=== PATIENT | male | born 1950 | race Caucasian/White ===

== ENCOUNTER 2017-08-16 19:40 | Emergency (ER) | payer OTHER ==
[~2017-08-16] VITALS: Ht 180.3 cm; Wt 100.0 kg
[2017-08-16] MEDS ORDERED: SODIUM CHLOR 0.9% 1000 ML INJ 1,000 ML IV ONE (20:00)
[2017-08-16 20:01] VITALS: BP 149/77; PULSE 77; RESP 16; O2SAT 97
[2017-08-16 20:08] VITALS: O2SAT 97
--- NOTE | 2017-08-16 20:17 | PD ---
HPI Chief Complaint: intoxication and facial trauma Time Seen by Provider: 20:00 Travel History International Travel<30 days: No Contact w/Intl Traveler<30days: No Traveled to known affect area: No History of Present Illness HPI This is a 67-year-old male with unknown past medical history, presents via EMS after he was found at the [employer] nearly passed out in the car. When paramedics arrived, they state police and found him sitting in the car with a heavy alcohol odor. The patient had slurred speech. He was alert and oriented to name only. Reportedly when the police got him out of the car, he fell forward and struck his face. There was no reported loss of consciousness. Patient has slurred speech and denies pain. He does appear to be heavily intoxicated. When asked what he drank, he reported again "a lot". There are no other obvious injuries other than his face. He has blood noted across his face and blood noted at his bilateral naris. There is swelling to his nose. PFSH Social History Tobacco Use: No (denies) Allergies-Medications (Allergen,Severity, Reaction): Coded Allergies: No Known Drug Allergies (Verified Allergy, Unknown, 08/17/17) Review of Systems ROS Limitations: Intoxication (unable to obtain review of systems secondary to the patient's intoxicated state.) Physical Exam Narrative GENERAL: Well developed well-nourished male in c-collar immobilization. The patient has obvious drying blood to his face and nose. There is blood noted in his mouth. SKIN: Focused skin assessment warm/dry. HEAD: Atraumatic. Normocephalic. EYES: Pupils are equal bilaterally at 3 mm No scleral icterus. No injection or drainage. ENT: Previous nasal bleeding with dried blood at his nares bilaterally. Patient has dried blood in his mouth. No obvious large laceration to his lip. He does have a small midline lower laceration that does not need repair and at this time. NECK: Trachea midline. In c-collar immobilization. CARDIOVASCULAR: Regular rate and rhythm. No murmur appreciated. RESPIRATORY: No accessory muscle use. Clear to auscultation. Breath sounds equal bilaterally. GASTROINTESTINAL: Abdomen soft, non-tender, nondistended. MUSCULOSKELETAL: No obvious deformities. No clubbing. No cyanosis. No edema. NEUROLOGICAL: Awake and intoxicated. No obvious cranial nerve deficits. Motor grossly within normal limits. Slurred speech. PSYCHIATRIC: Appropriate mood and affect; insight and judgment normal. Data Data Last Documented VS Vital Signs Date Time Temp Pulse Resp B/P (MAP) Pulse Ox O2 Delivery O2 Flow Rate FiO2 08/16/17 20:08 97 08/16/17 20:01 77 16 149/77 (101) Orders Orders Complete Blood Count With Diff (08/16/17 20:00) Comprehensive Metabolic Panel (08/16/17 20:00) Magnesium (Mg) (08/16/17 20:00) Ct Brain W/O Iv Contrast(Rout) (08/16/17 20:00) Iv Access Insert/Monitor (08/16/17 20:00) Ecg Monitoring (08/16/17 20:00) Oximetry (08/16/17 20:00) Alcohol (Ethanol) (08/16/17 20:00) Ct Cerv Spine W/O Contrast (08/16/17 20:00) Sodium Chlor 0.9% 1000 Ml Inj (Ns 1000 M (08/16/17 20:00) Ct Facial Bones W/O Iv Cont (08/16/17 ) Tetanus/Diphtheria Tox Adult (Tetanus/Di (08/17/17 02:30) Labs Laboratory Tests Test 08/16/17 20:06 White Blood Count 6.8 TH/MM3 Red Blood Count 4.28 MIL/MM3 Hemoglobin 13.1 GM/DL Hematocrit 39.0 % Mean Corpuscular Volume 91.1 FL Mean Corpuscular Hemoglobin 30.6 PG Mean Corpuscular Hemoglobin Concent 33.6 % Red Cell Distribution Width 13.1 % Platelet Count 192 TH/MM3 Mean Platelet Volume 8.3 FL Neutrophils (%) (Auto) 51.3 % Lymphocytes (%) (Auto) 37.3 % Monocytes (%) (Auto) 8.3 % Eosinophils (%) (Auto) 2.7 % Basophils (%) (Auto) 0.4 % Neutrophils # (Auto) 3.5 TH/MM3 Lymphocytes # (Auto) 2.6 TH/MM3 Monocytes # (Auto) 0.6 TH/MM3 Eosinophils # (Auto) 0.2 TH/MM3 Basophils # (Auto) 0.0 TH/MM3 CBC Comment DIFF FINAL Differential Comment Blood Urea Nitrogen 17 MG/DL Creatinine 0.73 MG/DL Random Glucose 97 MG/DL Total Protein 6.5 GM/DL Albumin 3.3 GM/DL Calcium Level 7.8 MG/DL Magnesium Level 2.1 MG/DL Alkaline Phosphatase 50 U/L Aspartate Amino Transf (AST/SGOT) 18 U/L Alanine Aminotransferase (ALT/SGPT) 22 U/L Total Bilirubin 0.3 MG/DL Sodium Level 141 MEQ/L Potassium Level 3.5 MEQ/L Chloride Level 109 MEQ/L Carbon Dioxide Level 22.7 MEQ/L Anion Gap 9 MEQ/L Estimat Glomerular Filtration Rate 107 ML/MIN Ethyl Alcohol Level 288 MG/DL [facility] Medical Decision Making Medical Screen Exam Complete: Yes Emergency Medical Condition: Yes Differential Diagnosis Alcohol intoxication versus intracranial injury versus metabolic derangement. Narrative Course 67-year-old male presents after being found in his car [place] [employer] intoxicated. The patient was taken out of his car by the police. When they did , the patient fell forward and struck his face on the ground. He has a right sided nasal bone fracture and a right minimally displaced infraorbital bone fracture. Patient's alcohol level was above 200. He'll be observed until he is appropriately sober. He does not need any laceration repair at this time. He'll be told to stop drinking alcohol. He'll be recommended to follow up with a maxillofacial physician as needed. He's been given tetanus immunization here in the emergency department. Diagnosis Primary Impression: Acute alcohol intoxication Additional Impressions: Nasal bone fracture right minimally displaced infraorbital bone fracture Additional Instructions: Follow up with a maxillofacial doctor as an outpatient for the fractures. Return if having difficulty with vision, or any other reason. Disposition: 01 DISCHARGE HOME Condition: Stable Harshad Mirza MD Aug 16, 2017 20:17
[2017-08-16 20:45] LABS: AUTOMATED NEUTROPHIL # 3.5 TH/MM3 (1.8-7.7); BASOPHIL % 0.4 % (0.0-2.0); EOSINOPHIL # 0.2 TH/MM3 (0-0.4); EOSINOPHIL % 2.7 % (0.0-4.0); HEMO FLAGS DIFF FINAL; LYMPH % 37.3 % (9.0-44.0); LYMPHOCYTE # 2.6 TH/MM3 (1.0-4.8); MEAN CELL VOLUME 91.1 FL (80.0-100.0); MEAN CORPUSCULAR HEMOGLOBIN 30.6 PG (27.0-34.0); MEAN CORPUSCULAR HGB CONC 33.6 % (32.0-36.0); MONO % 8.3 % (0.0-8.0); NEUT % 51.3 % (16.0-70.0); PLATELET COUNT 192 TH/MM3 (150-450); RED BLOOD COUNT 4.28 MIL/MM3 (4.50-5.90); RED CELL DISTRIBUTION WIDTH 13.1 % (11.6-17.2); WHITE BLOOD COUNT 6.8 TH/MM3 (4.0-11.0)
[2017-08-16 21:02] LABS: ANION GAP 9 MEQ/L (5-15); AST (GOT) 18 U/L (15-37); BICARBONATE 22.7 MEQ/L (21.0-32.0); BLOOD UREA NITROGEN 17 MG/DL (7-18); CHLORIDE 109 MEQ/L (98-107); GLOMERULAR FILTRATION RATE 107 ML/MIN (>89); MAGNESIUM 2.1 MG/DL (1.5-2.5); POTASSIUM 3.5 MEQ/L (3.5-5.1); SODIUM (NA) 141 MEQ/L (136-145)
[2017-08-16 21:06] LABS: ALKALINE PHOSPHATASE 50 U/L (45-117); ALT (GPT) 22 U/L (12-78); TOTAL BILIRUBIN ADULT 0.3 MG/DL (0.2-1.0)
[2017-08-16 21:23] LABS: ALCOHOL 288 MG/DL (0-5)
--- NOTE | 2017-08-16 22:09 | RADRPT ---
EXAM DATE/TIME: 08/16/2017 20:31 [facility] COMPARISON: No previous studies available for comparison. INDICATIONS : Trauma, fall. RADIATION DOSE: 43.05 CTDIvol (mGy) MEDICAL HISTORY : None SURGICAL HISTORY : None. ENCOUNTER: Initial ACUITY: 1 day PAIN SCALE: 0/10 LOCATION: Cranial TECHNIQUE: Multiple contiguous axial images were obtained of the head. Using automated exposure control and adjustment of the mA and/or kV according to patient size, radiation dose was kept as low as reasonably achievable to obtain optimal diagnostic quality images. DICOM format image data is av ailable electronically for review and comparison. FINDINGS: The ventricles, cortical sulci, and basal cisterns are normal. No extra-axial fluid co llections, areas of hemorrhage, mass effect or infarction are seen. There is soft-tissue swelling seen over the right frontal scalp and periorbital region. There appear s to be fracturing at the base of the right nasal bone with slight medial displacement of the distal fragment. There does appear to be irregularity at the right orbital floor concerning for an orbital floor fracture. Fluid is seen within the right maxillary sinus. CONCLUSION: 1. No acute intracranial abnormality. 2. Suspected fracturing at the base of the right nasal bone. 3. Possible deformity at the right orbital floor. A facial CT examination could be performed to furt her evaluate the orbital floor on the right. Tristen Smith MD on August 16, 2017 at 21:48 Board Certified Radiologist. This report was verified electronically.
--- NOTE | 2017-08-16 22:16 | RADRPT ---
EXAM DATE/TIME: 08/16/2017 20:34 [facility] COMPARISON: No previous studies available for comparison. INDICATIONS : Trauma, fall. RADIATION DOSE: 26.34 CTDIvol (mGy) MEDICAL HISTORY : None SURGICAL HISTORY : None. ENCOUNTER: Initial ACUITY: 1 day PAIN SCALE: 0/10 LOCATION: Neck TECHNIQUE: Volumetric scanning of the cervical spine was performed. Multiplanar reconstructions i n the sagittal, coronal and oblique axial planes were performed. Using automated exposure control a nd adjustment of the mA and/or kV according to patient size, radiation dose was kept as low as reason ably achievable to obtain optimal diagnostic quality images. DICOM format image data is available e lectronically for review and comparison. FINDINGS: VERTEBRAE: Normal vertebral body height. ALIGNMENT: No evidence of subluxation. C2-C3: The bony spinal canal is normal in size. No evidence of disc bulge or herniation. The neura l foramina are bilaterally patent. There is a small amount of air seen at the inferior aspect of the C2 body likely reflecting some air within the nucleus pulposus extending into a Schmorl's node. C3-C4: The posterior disc margins are intact. Significant spinal stenosis is not appreciated. There is left facet hypertrophy causing left neural foraminal narrowing. The right neural foramina appears intact. C4-C5: There is mild diffuse disc bulge. Significant stenosis is not appreciated. There is uncover tebral hypertrophy and mild facet hypertrophy. The neural foramina are grossly intact. C5-C6: Disc demonstrates decreased height. There is mild bulging. This causes a mild impression on t he thecal sac. There is uncovertebral hypertrophy particularly on the right. There is narrowing of the neural foramina bilaterally. C6-C7: Disc demonstrates decreased height. There is mild diffuse disc bulge and osteophytic ridging causing at least a mild impression on the anterior aspect of the thecal sac. The impression on the t hecal sac is most prominent at the right lateral recess region. There is uncovertebral hypertrophy b eing worse on the right. There is narrowing of the neural foramina on the right. C7-T1: Disc demonstrates decreased height. A significant impression on the thecal sac is not seen. The neural foramina are normal. CONCLUSION: 1. No acute bony abnormality is seen. 2. Chronic degenerative change as described above. Tristen Smith MD on August 16, 2017 at 21:53 Board Certified Radiologist. This report was verified electronically.
--- NOTE | 2017-08-17 00:59 | RADRPT ---
EXAM DATE/TIME: 08/17/2017 00:32 [facility] COMPARISON: No previous studies available for comparison. INDICATIONS : Trauma, fall. Right eye bruising. RADIATION DOSE: 36.57 CTDIvol (mGy) MEDICAL HISTORY : None SURGICAL HISTORY : None. ENCOUNTER: Initial ACUITY: 1 day PAIN SCORE: Non-responsive LOCATION: Right facial TECHNIQUE: Volumetric scanning of the facial bones was performed. Using automated exposure control and adjustme nt of the mA and/or kV according to patient size, radiation dose was kept as low as reasonably achiev able to obtain optimal diagnostic quality images. DICOM format image data is available electronicall y for review and comparison. FINDINGS: ORBITS: There is a fracture of the inferior orbital wall on the right. There is hemorrhage abutting the infer ior rectus muscle. Posteriorly there is some depression of the bony cortex with some hemorrhage in th e maxillary sinus The retroconal structures have a normal configuration. No radiopaque foreign margaret s are seen. NASAL BONE: Small fracture the base of the right nasal bone . The maxillary spine are intact ZYGOMATIC ARCHES: Symmetric without evidence of fracture. SINUSES: The maxillary, ethmoid and frontal sinuses are intact. No air-fluid levels seen. NASAL CAVITY: The nasal septum is intact and midline. The lacrimal ducts are intact. SOFT TISSUES: No radiopaque foreign bodies seen. Swelling in the region of the right nasal bone and infraorbital re gion. INTRACRANIAL: No intracranial air seen. CRIBIFORM PLATE: Grossly intact. CONCLUSION: Minimally displaced fracture of the inferior orbital rim on the right. Small amount of surrounding he morrhage. The small right nasal bone fracture surrounding soft tissue edema. Tan Razo MD on August 17, 2017 at 0:51 Board Certified Radiologist. This report was verified electronically.
[2017-08-17] MEDS ORDERED: TETANUS/DIPHTHERIA TOXOID ADULT 0.5 ML VIAL IM ONE (02:30)
[2017-08-17 06:51] VITALS: BP 157/82; PULSE 75; RESP 16; O2SAT 98
== END 2017-08-17 07:40 | disposition home or self-care (01) ==
LOC: NEPE 19:40
DX: F10.129 Alcohol abuse with intoxication, unspecified (principal); S02.2XXA Fracture of nasal bones, initial encounter for closed fracture; S02.81XA Fracture of other specified skull and facial bones, right side, initial encounter for closed fracture; W01.198A Fall on same level from slipping, tripping and stumbling with subsequent striking against other object, initial encounter; Y92.511 Restaurant or cafe as the place of occurrence of the external cause; Z23 Encounter for immunization
CPT/HCPCS: 70450; 70486; 72125; 80053; 80307; 83735; 85025; 90471; 90714; 96360; 96361; 99285; J7030